=== PATIENT | female | born 1985 | race Asian ===

== ENCOUNTER 2021-12-07 07:25 | Inpatient (IN) | payer BC ==
[2021-12-07] MEDS ORDERED: Lidocaine 1% 50 ML MDV ONE (07:45)
[2021-12-07] MEDS ORDERED: Oxytocin 10 Units/1 ML SDV ONE (07:46)
[2021-12-07] MEDS ORDERED: Oxytocin/Lactated Ringers 10 UNIT/1,000 ML BAG IV ONE (08:44)
[2021-12-07] MEDS ORDERED: Oxytocin 10 Units/1 ML SDV IM ONE (09:00)
[2021-12-07] MEDS ORDERED: Sodium Chloride 0.9% 10 ML Syringe FLUSH SCH (09:00)
[2021-12-07] MEDS ORDERED: Ibuprofen 600 MG Tab PO PRN (10:32)
[2021-12-07] MEDS ORDERED: Acetaminophen 325 MG Tab PO PRN (10:32)
[2021-12-07] MEDS ORDERED: Witch Hazel Medicated Pads 40/Jar TOP PRN (10:32)
[2021-12-07] MEDS ORDERED: Docusate Sodium 100 MG Cap PO PRN (10:32)
[2021-12-07] MEDS ORDERED: Benzocaine/Menthol 20%-0.5% Spray 78 GM Cannister TOP PRN (10:32)
[2021-12-07] MEDS ORDERED: Oxytocin/Lactated Ringers 10 UNIT/1,000 ML BAG IV SCH (10:45)
== END 2021-12-09 10:55 | disposition home or self-care (01) | DRG 560 ==
LOC: JD.OBCHECK 07:25 → JD.OB 07:33 → JD.OBCHECK 07:59 → JD.OB 08:10
PROVIDERS: ADMIT Obstetrics & Gynecology; ATTEND Obstetrics & Gynecology
PROC: 10E0XZZ Delivery of Products of Conception, External Approach (ICD-10-PCS; principal; 2021-12-07)
PROC: 10907ZC Drainage of Amniotic Fluid, Therapeutic from Products of Conception, Via Natural or Artificial Opening (ICD-10-PCS; 2021-12-07)
PROC: 0KQM0ZZ Repair Perineum Muscle, Open Approach (ICD-10-PCS; 2021-12-07)
DX: O77.0 Labor and delivery complicated by meconium in amniotic fluid (principal); Z3A.38 38 weeks gestation of pregnancy; Z37.0 Single live birth; O70.1 Second degree perineal laceration during delivery; Z20.822 Contact with and (suspected) exposure to COVID-19
CPT/HCPCS: 36415; 59409; 85025; 86592; 86850; 86900; 86901; A9270-GY; J2001; J2590; U0002